=== PATIENT | female | born 1940 | race Caucasian/White ===

== ENCOUNTER 2016-06-21 22:08 | Emergency (ER) | payer OTHER, BC ==
[2016-06-21 22:17] VITALS: BP 138/81; PULSE 66; TEMP 98.1; BMI 29.7
[2016-06-21] MEDS ORDERED: HYDROCORTISONE 1% TOPICAL CREAM 30 GM TUBE TP STA (22:34)
--- NOTE | 2016-06-21 23:02 | PDOC ---
History of Present Illness - General Chief Complaint: Rash Stated Complaint: RASH, BURNING AND ITCHING Time Seen by Provider: 06/21/16 22:34 History Source: Patient - History of Present Illness Timing/Duration: 24 hours Severity: moderate Modifying Factors: improves with: other (symptoms improve with corticosteroid cream) Associated Symptoms: denies: chest pain, fever/chills, nausea/vomiting, weakness Past History - Past Medical History Allergies/Adverse Reactions: Allergies Allergy/AdvReac Type Severity Reaction Status Date / Time Penicillins Allergy Severe Verified 06/21/16 22:10 azithromycin [From Zithromax] Allergy Intermediate Verified 06/21/16 22:10 Home Medications: Ambulatory Orders Aspirin [ASA -] 81 mg PO DAILY 06/21/16 Azelastine/Fluticasone [Dymista Nasal Y[place]y] 2 spr NS PRN 06/21/16 Hydrocortisone 1% Cream [Hytone 1% Cream -] 1 applic TP QID #4 tube 06/21/16 Prednisone [Deltasone -] 40 mg PO DAILY #10 tablet 06/21/16 Cardiac Disorders: (RHEUMATIC FEVER?MITRAL STENOSIS) Diabetes: No GI Disorders: Yes (PEPTIC ULCER;H.PYLORI;COLON POLYPS;DIVERTICULOSIS;GERD) - Psycho/Social/Smoking Cessation Hx Anxiety: No Suicidal Ideation: No Smoking Status: No Smoking History: Never smoked Have you smoked in the past 12 months: No Number of Cigarettes Smoked Daily: 0 Cigars Per Day: 0 Information on smoking cessation initiated: No Hx Alcohol Use: No Drug/Substance Use Hx: No Substance Use Type: None Hx Substance Use Treatment: No Review of Systems - Review of Systems All Other Systems: Reviewed and Negative *Physical Exam - Vital Signs Last Vital Signs Temp Pulse Resp BP Pulse Ox 98.1 F 66 16 138/81 99 06/21/16 22:14 06/21/16 22:14 06/21/16 22:14 06/21/16 22:14 06/21/16 22:14 - Physical Exam Comments: 06/22/16 05:20 GENERAL: [The patient is awake, alert, and fully oriented, and in no apparent distress.] HEAD: [Normal with no signs of trauma.] EYES: [Pupils equal, round and reactive to light, extraocular movements intact, sclera anicteric, conjunctiva are normal.] ENT: [TMs normal, nares patent, oropharynx clear without exudates. Moist mucous membranes.] NECK: [Normal range of motion, supple without lymphadenopathy, JVD, or masses.] LUNGS: [Breath sounds equal, clear to auscultation bilaterally. No wheezes, and no crackles.] HEART: [Regular rate and rhythm, normal S1 and S2 without murmur, rub or gallop.] ABDOMEN: [Soft, nontender, normoactive bowel sounds. No guarding, no rebound. No masses appreciated.] EXTREMITIES: [Normal range of motion, no edema. No clubbing or cyanosis. No cords, erythema, or tenderness.] NEUROLOGICAL: [Cranial nerves II through XII grossly intact. Normal speech, normal gait.] PSYCH: [Normal mood, normal affect.] SKIN: [fine erythematous papular rash on bl LEs starting proximal to knees, extending proximal to ankles ] Medical Decision Making - Medical Decision Making 06/22/16 05:22 most likely drug reaction s/p completing course of macrobid. corticosteroid cream. to translator/interpreter for testing *DC/Admit/Observation/Transfer Diagnosis at time of Disposition: Drug reaction - Discharge Dispostion Disposition: HOME Condition at time of disposition: Stable - Prescriptions Prescriptions: Prednisone [Deltasone -] 40 mg PO DAILY #10 tablet Hydrocortisone 1% Cream [Hytone 1% Cream -] 1 applic TP QID #4 tube - Patient Instructions Printed Discharge Instructions: DI for Adverse Drug Reaction -- Allergic Additional Instructions: Please follow up with an translator/interpreter
== END 2016-06-21 23:05 | disposition home or self-care (01) ==
LOC: FER 22:08
DX: T37.8X5A Adverse effect of other specified systemic anti-infectives and antiparasitics, initial encounter (principal); Y92.9 Unspecified place or not applicable; Z79.82 Long term (current) use of aspirin; K27.9 Peptic ulcer, site unspecified, unspecified as acute or chronic, without hemorrhage or perforation; K21.9 Gastro-esophageal reflux disease without esophagitis; I05.0 Rheumatic mitral stenosis
CPT/HCPCS: 99281-25

== ENCOUNTER 2016-08-20 22:39 | Emergency (ER) | payer OTHER, BC ==
--- NOTE | 2016-08-20 22:47 | PDOC ---
History of Present Illness - General Chief Complaint: Irregular Heart Beat Stated Complaint: HEART RACING Time Seen by Provider: 08/20/16 22:45 History Source: Patient Exam Limitations: No Limitations - History of Present Illness Initial Comments: 08/21/16 00:34 This is a healthy 76-year-old female who comes in complaining of palpitations. Patient said that she played tennis midday in 90 temperatures and after she got from playing tennis she palpitations. Patient said that she over the period of 4 hours took her heart rate for 5 times and heart rate varied anywhere from 80-140. Here in the emergency room however once she got to the emergency room she said her symptoms resolved. Patient denied any chest pain, nausea, diaphoresis, shortness of breath or any other associated symptoms. Patient recently had a complete cardiac workup including stress test that was normal for any acute cardiac issues. Patient did have a history of paroxysmal atrial fibrillation several years ago. PAST MEDICAL HISTORY: no significant history PAST SURGICAL HISTORY: no significant history FAMILY HISTORY: no pertinant history SOCIAL HISTORY: Pt lives with family and is employed. MEDICATIONS: reviewed ALLERGIES: As per nursing notes Review of Systems General: No fevers or chills, no weakness, no weight loss HEENT: No change in vision. No sore throat,. No ear pain CardioVascular: No chest pain or shortness of breath, positive for palpitations Respiratory:No cough, or wheezing. Gastrointestinal: no nausea, vomitting, diarrhea or constipation, No rectal bleeding Genitourinary: No dysuria, hematuria, or frequency Musculoskeletal: No joint or muscle pain or swelling Neurologic: No headache, vertigo, dizziness or loss of consciousness Psychiatric: nor depression Skin: No rashes or easy bruising Endocrine: no increased thirst or abnormal weight change Allergic: no skin or latex allergy All other systems reviewed and normal Exam: General: Well-nourished well-developed individual, no acute distress HEENT: Throat: Normal, tonsils normal, no erythema or exudate Neck: Supple, no meningeal signs, no lymphadenopathy Eyes::Pupils equal reactive and round, extraocular motion intact Chest: Nontender to palpation Cardiac: S1-S2 normal, regular rate and rhythm, no murmurs rubs or gallops Respiratory: Lungs clear to auscultation bilateral Abdomen: Soft, nondistended, normal bowel sounds, nontender to palpation diffusely Extremities: Warm, dry, no cyanosis, clubbing, or edema Skin: No rashes Neuro: Alert and oriented x3, nonfocal exam, grossly intact, normal gait Psych: Normal mood and affect EKG shows normal sinus rhythm at a rate of 81, normal intervals no acute ST-T wave changes Assessment and plan: This is a 76-year-old female who comes in complaining of palpitations. Patient has a history of paroxysmal atrial fibrillation and most likely had been having some atrial fibrillation prior to arrival. Here in the emergency room patient has remained in normal sinus rhythm at a rate 60-70. Patient had a workup including a negative troponin however patient's sugar was mildly elevated at 199 so she was given copies of her blood work and told to follow the glucose up with her primary care doctor. Past History - Past Medical History Allergies/Adverse Reactions: Allergies Allergy/AdvReac Type Severity Reaction Status Date / Time Penicillins Allergy Severe Verified 06/21/16 22:10 azithromycin [From Zithromax] Allergy Intermediate Verified 06/21/16 22:10 Home Medications: Ambulatory Orders Aspirin [ASA -] 81 mg PO DAILY 06/21/16 Azelastine/Fluticasone [Dymista Nasal Leigh] 2 spr NS PRN 06/21/16 Cholecalciferol (Vitamin D3) [D-2000] 2,000 unit PO DAILY 08/20/16 Cardiac Disorders: (RHEUMATIC FEVER?MITRAL STENOSIS) Diabetes: No GI Disorders: Yes (PEPTIC ULCER;H.PYLORI;COLON POLYPS;DIVERTICULOSIS;GERD) - Psycho/Social/Smoking Cessation Hx Anxiety: No Suicidal Ideation: No Smoking Status: No Smoking History: Never smoked Have you smoked in the past 12 months: No Number of Cigarettes Smoked Daily: 0 Cigars Per Day: 0 Hx Alcohol Use: No Drug/Substance Use Hx: No Substance Use Type: None Hx Substance Use Treatment: No *Physical Exam - Vital Signs Last Vital Signs Temp Pulse Resp BP Pulse Ox 98.3 F 84 16 138/78 96 08/20/16 22:46 08/20/16 22:46 08/20/16 22:46 08/20/16 22:46 08/20/16 22:46 ED Treatment Course - LABORATORY CBC & Chemistry Diagram: 08/20/16 23:06 08/20/16 23:06 - ADDITIONAL ORDERS Additional order review: Laboratory Results 08/20/16 08/20/16 23:06 23:05 Sodium 138 Potassium 3.7 Chloride 105 Carbon Dioxide 23 Anion Gap 10 BUN 18 Creatinine 1.4 H D Creat Clearance w eGFR 36.66 Random Glucose 199 H D Calcium 8.9 Total Bilirubin 0.1 L D AST 21 ALT 14 D Alkaline Phosphatase 68 Creatine Kinase 51 Troponin I < 0.03 L Total Protein 7.3 Albumin 3.6 08/20/16 23:06 RBC 4.49 MCV 82.2 MCHC 33.8 RDW 14.7 MPV 8.5 Neutrophils % 51.2 Lymphocytes % 36.2 Monocytes % 6.0 Eosinophils % 6.0 H Basophils % 0.6 - RADIOLOGY Radiology Studies Ordered: Category Date Time Status CHEST X-RAY PORTABLE* [RAD] Stat Radiology 08/20/16 22:50 Taken *DC/Admit/Observation/Transfer Diagnosis at time of Disposition: Palpitations - Discharge Dispostion Disposition: HOME Condition at time of disposition: Stable Admit: No - Patient Instructions Printed Discharge Instructions: DI for Arrhythmias Additional Instructions: Return to the emergency department immediately with ANY new, persistent or worsening symptoms. Continue any medications as previously prescribed by your physician. You should follow up with your primary doctor as soon as possible regarding today's emergency department visit. . Please make sure your doctor reviews the results of your emergency evaluation. Thank you for coming to the Emergency Department today for your care. It was a pleasure to see you today. Please note that your evaluation is INCOMPLETE until you follow-up with your doctor. You were given copies of your blood work take a copy of that to your doctor and especially follow-up with your kidney function test as well as your sugar test
[2016-08-20 22:50] VITALS: BP 138/78; PULSE 84; TEMP 98.3; BMI 29.7
[2016-08-20 23:22] LABS: BASOPHIL 0.6 % (0-2.0); MCH 27.8 pg (25.7-33.7); MCHC 33.8 g/dl (32.0-36.0); MEAN CELL VOLUME 82.2 fl (80-96); MEAN PLT VOLUME 8.5 fl (7.5-11.1); NEUTROPHILS 51.2 % (42.8-82.8); PLATELET COUNT 184 K/MM3 (134-434); RDW 14.7 % (11.6-15.6); WHITE BLOOD COUNT 8.2 K/mm3 (4.0-10.8)
[2016-08-20] MEDS ORDERED: SODIUM CHLORIDE 1,000 ML IV ONE (23:39)
[2016-08-20 23:43] LABS: CPK(DFH) 51 IU/L (26-140)
[2016-08-20 23:43] LABS: ALBUMIN 3.6 g/dl (3.5-5.0); ALK PHOS 68 U/L (32-92); ANION GAP 10 (8-16); BILIRUBIN,TOTAL 0.1 mg/dl (0.2-1.0); CALCIUM 8.9 mg/dl (8.4-10.2); CO2 23 mmol/L (22-28); CREATININE 1.4 mg/dl (0.6-1.3); GLUCOSE,RANDOM 199 mg/dl (74-106); SGOT/AST 21 U/L (10-42); SGPT/ALT 14 U/L (10-40); TOT PROT 7.3 g/dl (6.4-8.3)
[2016-08-20 23:49] LABS: COCKROFT - GAULT NT
[2016-08-20 23:57] LABS: TROPONIN I (DFP) < 0.03 ng/ml (0.03-0.50)
--- NOTE | 2016-08-22 16:17 | EKG ---
Test Reason : Blood Pressure : / mmHG Vent. Rate : 081 BPM Atrial Rate : 081 BPM P-R Int : 182 ms QRS Dur : 096 ms QT Int : 408 ms P-R-T Axes : 033 034 067 degrees QTc Int : 473 ms NORMAL SINUS RHYTHM NONSPECIFIC T WAVE ABNORMALITY WHEN COMPARED WITH ECG OF 05-JUL-2013 13:52, NO SIGNIFICANT CHANGE WAS FOUND Confirmed by MD PEREZ MARJORY ([id number]) on 08/22/2016 4:16:35 PM Referred By: DR OMALLEY Confirmed By:JOE PEREZ MD
== END 2016-08-21 00:39 | disposition home or self-care (01) ==
LOC: FER 22:39
PROC: 3E0337Z Introduction of Electrolytic and Water Balance Substance into Peripheral Vein, Percutaneous Approach (ICD-10-PCS; principal; 2016-08-20)
DX: R00.2 Palpitations (principal); K27.9 Peptic ulcer, site unspecified, unspecified as acute or chronic, without hemorrhage or perforation; Z79.82 Long term (current) use of aspirin
CPT/HCPCS: 36415; 71010-TC; 80053; 82550; 84484; 85025; 93005; 99283-25

== ENCOUNTER 2021-02-19 07:40 | Day surgery (SDC) | payer OTHER ==
[2021-02-17 15:29] VITALS: BMI 31.2
[2021-02-19] MEDS ORDERED: CIPROFLOXACIN 0.3% EYE DROPS 5 ML BOTTLE ONE (07:50)
[2021-02-19] MEDS: CYCLOPENTOLATE 2% OPHTH SOLN 2 ML BOTTLE ONE ×3 (08:00→08:10)
[2021-02-19] MEDS: PHENYLEPHRINE 2.5% OPHTH SOLN 15 ML BOTTLE ONE ×3 (08:00→08:10)
[2021-02-19] MEDS: TROPICAMIDE 1% OPHTH SOLN 15 ML BOTTLE ONE ×3 (08:00→08:10)
[2021-02-19] MEDS: TOBRAMYCIN 0.3% OPHTH SOLN 5 ML BOTTLE ONE ×3 (08:00→08:10)
[2021-02-19] MEDS ORDERED: TETRACAINE 0.5% OPHTH SOLN 2 ML BOTTLE ONE (08:56)
[2021-02-19] MEDS ORDERED: NEO/POLYMYX B SULF/DEXAMETH OPHTHALMIC 5ML BOTTLE ONE (08:56)
[2021-02-19] MEDS ORDERED: BSS (NA/CA/MG/K) BALANCED SALT SOLUTION OPHTH SOLN 15 ML BOTTLE ONE (08:56)
[2021-02-19] MEDS ORDERED: LIDOCAINE 1% P/F 10 MG/ML VIAL ONE (08:56)
[2021-02-19] MEDS ORDERED: EPINEPHrine/PF 1 MG/1 ML (1:1,000) AMPULE ONE (08:56)
[2021-02-19] MEDS ORDERED: CARBACHOL 0.01% INTRA-OCULAR 1.5 ML VIAL ONE (08:56)
[2021-02-19] MEDS ORDERED: MIDAZOLAM HCL 2 MG/2 ML SINGLE DOSE VIAL ONE (09:27)
[2021-02-19 10:17] VITALS: TEMP 97.8
[2021-02-19 10:41] VITALS: BP 118/65; PULSE 71
== END 2021-02-19 10:35 | disposition home or self-care (01) ==
LOC: FASU 07:40
PROVIDERS: ATTEND Ophthalmology
PROC: 08RJ3JZ Replacement of Right Lens with Synthetic Substitute, Percutaneous Approach (ICD-10-PCS; principal; 2021-02-19 09:43)
DX: H26.8 Other specified cataract (principal)

== ENCOUNTER 2021-08-13 08:48 | Day surgery (SDC) | payer OTHER ==
[2021-08-05 10:12] VITALS: BMI 31.6
[2021-08-13] MEDS ORDERED: CIPROFLOXACIN 0.3% EYE DROPS 5 ML BOTTLE ONE (08:55)
[2021-08-13] MEDS ORDERED: TOBRAMYCIN 0.3% OPHTH SOLN 5 ML BOTTLE ONE (09:11)
[2021-08-13 09:15] VITALS: TEMP 97.8
[2021-08-13] MEDS ORDERED: MIDAZOLAM HCL 2 MG/2 ML SINGLE DOSE VIAL ONE (09:15)
[2021-08-13] MEDS: TOBRAMYCIN 0.3% OPHTH SOLN 5 ML BOTTLE OS SCH ×3 (09:15→09:25)
[2021-08-13] MEDS: TROPICAMIDE 1% OPHTH SOLN 15 ML BOTTLE ONE ×3 (09:15→09:25)
[2021-08-13] MEDS: CYCLOPENTOLATE 2% OPHTH SOLN 2 ML BOTTLE ONE ×3 (09:15→09:25)
[2021-08-13] MEDS: PHENYLEPHRINE 2.5% OPHTH SOLN 15 ML BOTTLE ONE ×3 (09:15→09:25)
[2021-08-13] MEDS ORDERED: CARBACHOL 0.01% INTRA-OCULAR 1.5 ML VIAL ONE (09:30)
[2021-08-13] MEDS ORDERED: NEO/POLYMYX B SULF/DEXAMETH OPHTHALMIC 5ML BOTTLE ONE (09:30)
[2021-08-13] MEDS ORDERED: TETRACAINE 0.5% OPHTH SOLN 2 ML BOTTLE ONE (09:30)
[2021-08-13] MEDS ORDERED: LIDOCAINE 1% P/F 10 MG/ML VIAL ONE (09:30)
[2021-08-13] MEDS ORDERED: BSS (NA/CA/MG/K) BALANCED SALT SOLUTION OPHTH SOLN 15 ML BOTTLE ONE (09:30)
[2021-08-13 10:27] VITALS: BP 122/80; PULSE 62
== END 2021-08-13 10:40 | disposition home or self-care (01) ==
LOC: FASU 08:48
PROVIDERS: ATTEND Ophthalmology
PROC: 08RK3JZ Replacement of Left Lens with Synthetic Substitute, Percutaneous Approach (ICD-10-PCS; principal; 2021-08-13 09:44)
DX: H26.8 Other specified cataract (principal)
CPT/HCPCS: 66984; V2632

== ENCOUNTER → 2022-03-07 | Emergency (ER) | payer OTHER ==
[~2022-03-07] MED LIST: DOXYCYCLINE HYCLATE 100 MG VIAL ONE; DOXYCYCLINE INJECTION 100 MG in DEXTROSE 5%-WATER 100 ML IVPB ONE; morphine CARPU-JECT 2 MG/1 ML DISP.SYRIN IVPUSH ONE; morphine SULFATE 4 MG/ML VIAL ONE
[2022-03-07 22:45] VITALS: BMI 31.8
[2022-03-07 23:17] LABS: HEMATOCRIT 34.6 % (32.4-45.2); HEMOGLOBIN 11.7 G/dL (10.7-15.3); MCH 28.4 pg (25.7-33.7); MCHC 33.8 g/dl (32.0-36.0); MEAN CELL VOLUME 83.9 fl (80-96); MEAN PLT VOLUME 8.6 fl (7.5-11.1); PLATELET COUNT 156.4 10^3/uL (134-434); RBC 4.12 10^6/uL (3.60-5.2); RDW 15.9 % (11.6-15.6); WHITE BLOOD COUNT 7.5 10^3/uL (4.0-10.8)
[2022-03-07 23:25] LABS: INR 1.12 (0.83-1.09); PROTHROMBIN TIME (PATIENT) 12.9 SEC (9.7-13.0)
[2022-03-07 23:31] LABS: ALBUMIN 3.5 g/dl (3.4-5.0); BILIRUBIN,TOTAL 0.6 mg/dl (0.2-1); CALCIUM 8.7 mg/dl (8.5-10); CREATININE 1.6 mg/dl (0.55-1.3); TOT PROT 7.7 g/dl (6.4-8.2)
[2022-03-08 08:30] LABS: ALBUMIN 3.2 g/dl (3.4-5.0); BILIRUBIN,TOTAL 0.8 mg/dl (0.2-1); CALCIUM 8.4 mg/dl (8.5-10); CREATININE 1.5 mg/dl (0.55-1.3)
[2022-03-08 08:31] VITALS: BP 134/71; PULSE 68; RESP 18
[2022-03-08 08:33] VITALS: TEMP 98
== END | disposition short-term general hospital (02) ==
LOC: FER 22:37
PROC: 3E033GC Introduction of Other Therapeutic Substance into Peripheral Vein, Percutaneous Approach (ICD-10-PCS; principal; 2022-03-07)
DX: S87.82XA Crushing injury of left lower leg, initial encounter (principal); W23.0XXA Caught, crushed, jammed, or pinched between moving objects, initial encounter
CPT/HCPCS: 36415; 71045-TC-FY; 73590-TC-LT-FY; 80053; 82550; 82553; 83615; 85027; 85610; 86850; 86900; 86901; 99285-25; C9803-CS; U0003; U0005

== ENCOUNTER 2023-04-16 04:44 | Day surgery (SDC) | payer OTHER ==
[2023-04-14 11:50] VITALS: BMI 29.2
[2023-04-16 10:52] VITALS: TEMP 99
[2023-04-16 11:17] VITALS: RESP 18
[2023-04-16 11:34] VITALS: BP 124/61; PULSE 60
== END 2023-04-16 11:42 | disposition home or self-care (01) ==
LOC: JASU-ENDO 04:44
PROVIDERS: ATTEND Internal Medicine Gastroenterology
PROC: 0DBN8ZX Excision of Sigmoid Colon, Via Natural or Artificial Opening Endoscopic, Diagnostic (ICD-10-PCS; principal; 2023-04-16 10:00)
DX: Z12.11 Encounter for screening for malignant neoplasm of colon (principal); K63.5 Polyp of colon; K57.30 Diverticulosis of large intestine without perforation or abscess without bleeding; Z86.010 Personal history of colon polyps; Z80.0 Family history of malignant neoplasm of digestive organs; R93.3 Abnormal findings on diagnostic imaging of other parts of digestive tract
CPT/HCPCS: 88305-TC